=== PATIENT | female | born 1960 | race Caucasian/White ===

== ENCOUNTER → 2018-07-29 | Emergency (ER) | payer OTHER ==
[~2018-07-29] VITALS: Ht 149.9 cm; Wt 62.6 kg
[~2018-07-29] MED LIST: ARAVA10 MG; FOLIC ACID1 MG; LISINOPRIL5 MG; PEPCID AC20 MG PO; PLAQUENIL; PROTONIX20 MG; RAYOS5 MG; TYLENOL-CODEINE1 TAB PO; VITAMIN D3400 UNI1; ZANTAC300 MG; ZOFRAN ODT4 MG PO
== END | disposition home or self-care (01) ==
LOC: ER 19:20
DX: K29.70 Gastritis, unspecified, without bleeding (principal)